=== PATIENT | male | born 2000 | race Caucasian/White ===

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

== ENCOUNTER 2019-12-23 15:05 | Emergency (ER) | payer OTHER ==
[~2019-12-23] VITALS: Ht 172.7 cm; Wt 56.7 kg
[2019-12-23 15:07] VITALS: BP 105/56
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
--- NOTE | 2019-12-23 15:55 | NUR ---
chart up for recheck, pt resting in bed well.
--- NOTE | 2019-12-23 16:34 | NUR ---
Patient/Caregiver given discharge instructions and they have confirmed that they understand the instructions. Patient ambulatory with steady gait.
== END 2019-12-23 16:38 | disposition home or self-care (01) ==
LOC: ED 16:04
DX: S39.012A Strain of muscle, fascia and tendon of lower back, initial encounter (principal); S40.011A Contusion of right shoulder, initial encounter; V47.0XXA Car driver injured in collision with fixed or stationary object in nontraffic accident, initial encounter; Y93.89 Activity, other specified; Y92.488 Other paved roadways as the place of occurrence of the external cause; Y99.8 Other external cause status
CPT/HCPCS: 72110; 99283

== ENCOUNTER 2020-02-06 21:02 | Emergency (ER) | payer OTHER ==
[~2020-02-06] VITALS: Ht 172.7 cm; Wt 55.0 kg
--- NOTE | 2020-02-06 21:58 | NUR ---
REPORT FROM GIAN MARQUEZ.
[2020-02-06] MEDS ORDERED: CYCLOBENZAPRINE 10 MG TABLET ONE (22:12)
[2020-02-06] MEDS ORDERED: KETOROLAC 30 MG/1 ML ONE (22:12)
[2020-02-06] MEDS ORDERED: ACETAMINOPHEN 325 MG TABLET ONE (22:13)
--- NOTE | 2020-02-06 22:18 | NUR ---
MEDICATION ADMINISTERED. PATIENT TOLERATED WELL. UPDATED ON PLAN OF CARE. NO NOTED ACUTE DISTRESS. WILL CONTINUE TO MONITOR.
[2020-02-06] MEDS ORDERED: ACETAMINOPHEN 325 MG TABLET PO ONE (22:30)
[2020-02-06] MEDS ORDERED: KETOROLAC 30 MG/1 ML IM ONE (22:30)
[2020-02-06] MEDS ORDERED: CYCLOBENZAPRINE 10 MG TABLET PO ONE (22:30)
[2020-02-06 22:51] VITALS: BP 116/56
== END 2020-02-06 22:53 | disposition home or self-care (01) ==
LOC: ED 22:18
DX: S29.012A Strain of muscle and tendon of back wall of thorax, initial encounter (principal); G89.11 Acute pain due to trauma; X58.XXXA Exposure to other specified factors, initial encounter; Y93.89 Activity, other specified; Y92.89 Other specified places as the place of occurrence of the external cause; Y99.8 Other external cause status
CPT/HCPCS: 72072; 96372; 99283; J1885